=== PATIENT | male | born 1990 | race Caucasian/White ===

== ENCOUNTER 2021-04-11 14:40 | Emergency (ER) | payer OTHER ==
[~2021-04-11] VITALS: Ht 177.8 cm; Wt 80.0 kg
[2021-04-11 15:30] VITALS: BP 126/73
--- NOTE | 2021-04-11 15:49 | RAD ---
XR SHOULDER_RIGHT 2+ VIEWS, XR RIGHT CLAVICLE Clinical Indication: Reason: pain / Comparison: None. Findings: There is acute traumatic fracture of the mid right clavicle. The fracture is mildly displaced, the la teral fracture fragment is inferior to the medial fragment. There is no acute fracture or dislocation of the shoulder. The acromioclavicular and glenohumeral articulations are maintained. The right uppe r lung is clear. No pneumothorax is seen. Soft tissues unremarkable. The sternoclavicular joint is pr obably intact. IMPRESSION: 1. Acute traumatic fracture of the mid right clavicle. 2. No acute fracture or dislocation of the shoulder. Electronically signed by: Homar Chino MD (04/11/2021 3:46 PM) LIZ
[2021-04-11] MEDS ORDERED: METH-561 PO (16:27)
[2021-04-11] MEDS ORDERED: OXYC1TAB15 PO (16:27)
--- NOTE | 2021-04-11 16:28 | ED.ADGEN ---
Past Medical History Past Medical History: Asthma Past Surgical History: Tonsillectomy Smoking Status: Never Smoker Alcohol Use: None General Adult EDM: Chief Complaint: SHOULDER INJURY HPI: HPI: Patient is a 30-year-old male who presents to the emergency room complaining of right shoulder pain after falling off of a truck. Patient was standing on the top of a parked truck when he lost his balance and landed on his shoulder. He states he is able to move his forearm, wrist, hand without difficulty it just causes him pain. He denies any sensation changes. He did not hit his head or lose consciousness. He denies any other injuries or pain. Review of Systems: Review of Systems: Complete ROS is negative unless otherwise documented in HPI Current Medications: Current Medications Medications (Trade) Dose Ordered Sig/Heather Start Time Stop Time Status Last Admin Dose Admin Oxycodone/ Acetaminophen (Percocet 5/325) 1 tab 1X ONCE 04/11/21 16:30 04/11/21 16:31 DC 04/11/21 16:36 1 TAB Allergies: Allergies: Allergies Coded Allergies Type Severity Reaction Last Updated Verified No Known Drug Allergies 04/11/21 No Physical Exam: PE: General: Awake, alert, NAD. Well Nourished, well hydrated. Cooperative HEENT: Atraumatic, EOMI, PERRL, airway patent, moist oral mucosa, no nasal septa l hematoma, no facial crepitus or deformity Neck: Supple, trachea midline, no C-spine tenderness Respiratory: CTA bilaterally, normal effort, no wheezing/crackles, no crepitus CV: RRR, no murmur, cap refill <2, 2+ bilateral radial/DP pulses GI: Soft, nondistended, nontender, no masses MSK: Deformity to the right clavicle, pelvis stable and nontender Skin: Warm, dry, intact Neuro: A&O x3, speech NL, sensory and motor grossly intact, no focal deficits Psych: Normal affect, normal mood, not suicidal or homicidal Current Patient Data: Vital Signs: Vital Signs Date Time Temp Pulse Resp B/P (MAP) Pulse Ox O2 Delivery O2 Flow Rate FiO2 04/11/21 16:36 16 98 Room Air 04/11/21 15:30 98.7 89 126/73 (90) 98.7 EKG: EKG: [] Heart Score: C/O Chest Pain: N/A Risk Factors: Risk Factors: DM, Current or recent (<one month) smoker, HTN, HLP, family history of CAD, obesity. Risk Scores: Score 0 - 3: 2.5% MACE over next 6 weeks - Discharge Home Score 4 - 6: 20.3% MACE over next 6 weeks - Admit for Clinical Observation Score 7 - 10: 72.7% MACE over next 6 weeks - Early Invasive Strategies Radiology/Procedures: Radiology/Procedures: [] Course & Med Decision Making: Course & Med Decision Making Pertinent Labs and Imaging studies reviewed. (See chart for details) Patient is a 30-year-old male who presents to the emergency room after falling off of a parked truck. Patient has a clavicle deformity. X-rays were ordered a nd he has a clavicle fracture. Patient does not have any skin tenting. He is neurovascularly intact. He will need to follow-up with orthopedic surgery later this week. He was placed in a sling. Patient's test results and vitals while in the ED were fully reviewed and discussed with the patient. Patient is stable and at this time does not need admission to the hospital. We have discussed strict return precautions and the importance of following up with their Primary Care Physician. Patient stated understanding and was given an opportunity to ask any questions. Patient is in agreement with plan. Jean Disclaimer: Jean Disclaimer: This electronic medical record was generated, in whole or in part, using a voice recognition dictation system. Departure Departure Impression: Primary Impression: Clavicle fracture Disposition: HOME / SELF CARE / HOMELESS Condition: STABLE Referrals: NO PCP (PCP) Patient Instructions: Clavicle Fracture Scripts Methocarbamol (METHOCARBAMOL) 500 Mg Tablet 500 MG PO QID PRN for MUSCLE PAIN for 5 Days, #20 TAB Prov: YUN RAMIREZ MD 04/11/21 Oxycodone/Apap 5-325 (PERCOCET 5-325 MG TABLET ) 1 Each Tablet 1 TAB PO PRN Q6HRS PRN for PAIN, #12 TAB 0 Refills Prov: YUN RAMIREZ MD 04/11/21 YUN RAMIREZ MD Apr 11, 2021 16:28
[2021-04-11] MEDS ORDERED: oxyCODONE/APAP 5/325 1 TAB TABLET PO ONE (16:30)
== END 2021-04-11 16:35 | disposition home or self-care (01) ==
LOC: ER 14:40
DX: S42.001A Fracture of unspecified part of right clavicle, initial encounter for closed fracture (principal); J45.909 Unspecified asthma, uncomplicated; V69.49XA Driver of heavy transport vehicle injured in collision with other motor vehicles in traffic accident, initial encounter; Y92.488 Other paved roadways as the place of occurrence of the external cause; Y93.89 Activity, other specified; Y99.8 Other external cause status
CPT/HCPCS: 73000; 73030; 99284

== ENCOUNTER 2021-04-17 14:23 | Day surgery (SDC) | payer OTHER ==
[~2021-04-17] VITALS: Ht 180.3 cm; Wt 79.5 kg
[~2021-04-17 14:23] MED LIST: HYDROmorphone 2 MG/ML VIAL IVP PRN; IV RINGERS,LACTATED 1000ML 1,000 ML IV SCH; METH-561 PO; MORPHINE SULFATE 2 MG/ML VIAL. IVP PRN; OXYC1TAB15 PO; PROCHLORPERAZINE 10 MG/2 ML VIAL. IVP PRN; fentaNYL PF VIAL 100 MCG/2 ML VIAL IVP PRN
[2021-04-17 14:51] VITALS: BP 132/80
[2021-04-17] MEDS ORDERED: ROPIVacaine 0.5% PF 20 ML VIAL. ONE (15:08)
[2021-04-17] MEDS ORDERED: MIDAZOLAM HCL/PF 2 MG/2 ML VIAL. ONE (15:08)
[2021-04-17] MEDS ORDERED: ROCURONIUM 50 MG/5 ML VIAL. ONE (15:14)
[2021-04-17] MEDS ORDERED: fentaNYL PF VIAL 100 MCG/2 ML VIAL ONE (15:20)
[2021-04-17] MEDS ORDERED: FAMOTIDINE 20 MG/2 ML VIAL ONE (15:28)
[2021-04-17] MEDS ORDERED: DEXAMETHASONE SOD PHOS 4 MG/ML VIAL ONE (15:28)
[2021-04-17] MEDS ORDERED: ONDANSETRON PF 4 MG/2 ML VIAL. ONE (15:42)
[2021-04-17] MEDS ORDERED: PROPOFOL 10 MG/ML (20ML) VIAL. IV ONE ×2 (15:43)
[2021-04-17] MEDS ORDERED: SEVOFLURANE > 120 MINUTES. IH ONE (15:43)
[2021-04-17] MEDS ORDERED: LIDOCAINE 2% PF 5 ML VIAL. ONE (15:43)
[2021-04-17] MEDS ORDERED: OXYC1TAB19 PO (15:44)
--- NOTE | 2021-04-17 15:47 | DISCH ---
DISCHARGE INSTRUCTIONS Condition on Discharge Condition on Discharge: Stable Activity After Discharge Activity Instructions for Disc: Other, see below (Shoulder motion may be un restricted and may do fine motor use of the hand such as eating writing typing and similar activities) Lifting Instructions after Dis: No heavy lifting, No pulling or pushing Diet after Discharge Diet after Discharge: Regular Wound Incision Care Wound/Incision Care: Ice to area for comfort, Change dressing (May remove dressing in 4 days, may then shower, call if any redness or drainage) Contacting the [facility] after DC Call your doctor for: Concerns you may have Follow-Up Follow up with: Dr. Pelletier or Randy 7 to 10 days MARCY PELLETIER MD Apr 17, 2021 15:47
[2021-04-17] MEDS ORDERED: NEOSTIGMINE METHYLSULFATE 5 MG/5 ML SYRINGE. ONE (16:28)
[2021-04-17] MEDS ORDERED: GLYCOPYRROLATE 1 MG/5 ML VIAL. ONE (16:28)
[2021-04-17] MEDS ORDERED: KETOROLAC 30 MG/ML VIAL. ONE (16:28)
[2021-04-17] MEDS ORDERED: BUPIVACAINE-EPI 0.5% 30 ML VIAL KIT. ONE (16:30)
[2021-04-17 17:33] VITALS: BP 128/65
--- NOTE | 2021-04-17 18:16 | PDOC4 ---
Operative Note Operative Note Date of surgery: 04/17/2021 Preoperative diagnosis: Displaced right clavicle shaft fracture Postoperative diagnosis: Same Operative procedure: Operative reduction internal fixation of right clavicle shaft fracture Surgeon: Prabhu Anesthesia: General Estimated blood loss: 20 cc Complications: None Operative indications: Please see my preoperative orthopedic clinic note for detailed operative indications and note that we reviewed risks and benefits of both nonoperative treatment and operative treatment options for the clavicle including the possibility of infection nerve or blood vessel damage medical or other anesthetic complications among others he agreed to proceed with surgical evaluation and treatment having given informed consent Operative text: Patient was identified procedure verified patient placed in the supine position on the operating table. After adequate amounts of general anesthesia were administered he was placed in the beachchair position with all bony prominences were padded and the right shoulder was prepped and draped in standard sterile fashion. After timeout was performed patient procedure identified and verified an incision was made centered over the fracture superior ly overlying the clavicle. Subperiosteal dissection was carried out, a 7 hole Shahana titanium midshaft clavicle plate was contoured to the anatomically reduced clavicle fracture. Nonlocking screws were first placed to ensure apposition and compression starting at the lateral aspect and then medial. Excellent apposition of the plate was obtained and an additional 2 locking screws were placed both medially and laterally to supplement fixation. Anatomic alignment was noted. Thorough irrigation carried out normal saline solution subcutaneous closure with buried Vicryl suture skin closure with josemanuel sterile dressings were applied patient was placed in a sling and returned to recovery room in stable condition having tolerated procedure well, with postoperative instructions for gentle shoulder range of motion fine motor use and no lifting pushing or pulling MARCY CONNELL MD Apr 17, 2021 18:16
== END 2021-04-17 18:05 | disposition home or self-care (01) ==
LOC: SURG 14:23
PROVIDERS: ATTEND Orthopaedic Surgery
DX: S42.021A Displaced fracture of shaft of right clavicle, initial encounter for closed fracture (principal); Z79.899 Other long term (current) drug therapy; Z98.890 Other specified postprocedural states; X58.XXXA Exposure to other specified factors, initial encounter; Y93.89 Activity, other specified; Y92.89 Other specified places as the place of occurrence of the external cause; Y99.8 Other external cause status
CPT/HCPCS: 23515; A4213; A4364; A4565; A4930; A6253; A6402; C1713; J0690; J1100; J1885; J2250; J2405; J2704; J2710; J2795; J3490; A4452; J3010